=== PATIENT | male | born 1965 | race Caucasian/White ===

== ENCOUNTER 2019-12-11 16:40 | Emergency (ER) | payer OTHER ==
[~2019-12-11] VITALS: Ht 167.6 cm; Wt 81.8 kg
[2019-12-11 17:15] VITALS: Ht 167.6 cm; Wt 81.8 kg
[2019-12-11 17:43] LABS: BASOPHILS 0.2 % (0-2); HEMATOCRIT 44.9 % (42.0-54.0); HEMOGLOBIN 15.3 g/dL (13.5-17.5); IMMATURE GRANULOCYTES 0.2 % (0-5); LYMPHOCYTES 4.2 % (15-50); MCH 31.7 pg (26.0-34.0); MCHC 34.1 g/dL (31.0-37.0); MONOCYTES 9.2 % (2-11); NEUTROPHILS 85.2 % (40-80); PLATELET COUNT 245 10x3/uL (130-400); RBC 4.83 10x6/uL (4.20-6.10); RDW 13.2 % (11.5-14.5); WBC 9.1 10x3/uL (4.8-10.8)
[2019-12-11 18:11] LABS: CALC OSMOLALITY 280 mosm/kg (275-300); CALCIUM 8.7 mg/dL (8.5-10.1); CARBON DIOXIDE 29.1 mmol/L (21.0-32.0); CHLORIDE - SERUM 101 mmol/L (98-107); CREATININE - SERUM 1.2 mg/dL (0.6-1.3); GLUCOSE 103 mg/dL (74-106); POTASSIUM - SERUM 4.2 mmol/L (3.5-5.1); SODIUM 141 mmol/L (136-145); UREA NITROGEN 12 mg/dL (7-18); eGFR NON AFRICAN AMERICAN 67 mL/min (90-120)
[2019-12-11 18:28] LABS: ALBUMIN 4.2 g/dL (3.4-5.0); ALKALINE PHOSPHATASE 60 U/L (30-120); ALT (SGPT) 27 U/L (10-68); BILIRUBIN - TOTAL 0.39 mg/dL (0.2-1.3); CKMB 0.6 U/L (0.0-3.6); CREATINE KINASE 86 UL (21-232); PROTEIN - SERUM 7.6 g/dL (6.4-8.2)
[2019-12-11 18:31] LABS: TROPONIN-I < 0.017 ng/mL (0.000-0.060)
[2019-12-11 19:08] LABS: APPEARANCE CLEAR (CLEAR); BILIRUBIN NEGATIVE (NEGATIVE); COLOR YELLOW (YELLOW); GLUCOSE NEGATIVE (NEGATIVE); KETONE NEGATIVE (NEGATIVE); NITRITE NEGATIVE (NEGATIVE); PROTEIN NEGATIVE (NEGATIVE); UROBILINOGEN NORMAL (NORMAL)
[2019-12-11] MEDS ORDERED: NORVASC5 MG PO (19:11)
[2019-12-11 19:25] VITALS: BP 139/77
== END 2019-12-11 19:25 | disposition home or self-care (01) ==
LOC: D.ER 16:40
PROVIDERS: Family Medicine
DX: I10 Essential (primary) hypertension (principal)

== ENCOUNTER 2020-06-15 10:29 | Emergency (ER) | payer OTHER ==
[~2020-06-15] VITALS: Ht 167.6 cm; Wt 81.8 kg
[~2020-06-15 10:29] MED LIST: NORVASC5 MG PO
[2020-06-15 10:34] VITALS: Ht 167.6 cm; Wt 81.8 kg
[2020-06-15 11:07] LABS: BILIRUBIN NEGATIVE (NEGATIVE); GLUCOSE NEGATIVE (NEGATIVE); KETONE NEGATIVE (NEGATIVE); RED CELLS - URINE 0-5 /hpf (0-5); UROBILINOGEN NORMAL (NORMAL)
[2020-06-15 11:09] LABS: NITRITE NEGATIVE (NEGATIVE)
[2020-06-15 11:38] LABS: BASOPHILS 0.1 % (0-2); EOSINOPHILS 0.5 % (0-7); HEMATOCRIT 40.8 % (42.0-54.0); HEMOGLOBIN 13.4 g/dL (13.5-17.5); IMMATURE GRANULOCYTES 0.2 % (0-5); LYMPHOCYTES 6.6 % (15-50); MCH 31.2 pg (26.0-34.0); MCHC 32.8 g/dL (31.0-37.0); MCV 94.9 fL (80.0-100.0); MONOCYTES 7.7 % (2-11); NEUTROPHILS 84.9 % (40-80); PLATELET COUNT 229 10x3/uL (130-400); RDW 13.6 % (11.5-14.5); WBC 9.4 10x3/uL (4.8-10.8)
[2020-06-15 11:47] LABS: ANION GAP 11.8 mmol/L (8-16); CALCIUM 8.8 mg/dL (8.5-10.1); CARBON DIOXIDE 23.3 mmol/L (21.0-32.0); CREATININE - SERUM 1.5 mg/dL (0.6-1.3); POTASSIUM - SERUM 4.1 mmol/L (3.5-5.1)
[2020-06-15 11:54] LABS: ALBUMIN 3.9 g/dL (3.4-5.0); BILIRUBIN - TOTAL 0.26 mg/dL (0.2-1.3); PROTEIN - SERUM 6.7 g/dL (6.4-8.2)
[2020-06-15] MEDS ORDERED: ZOFRAN ODT4 MG/UDTAB PO (12:08)
[2020-06-15] MEDS ORDERED: FLOMAX0.4 MG PO (12:08)
[2020-06-15] MEDS ORDERED: HYDROCODON-ACE1 EAC2 PO (12:08)
[2020-06-15 12:32] VITALS: BP 142/78
== END 2020-06-15 12:33 | disposition home or self-care (01) ==
LOC: D.ER 10:29
PROVIDERS: Family Medicine
DX: N20.0 Calculus of kidney (principal); N13.30 Unspecified hydronephrosis